=== PATIENT | female | born 1935 | race Caucasian/White ===

== ENCOUNTER → 2019-05-06 | Outpatient (CLI) | payer MEDICARE ==
[~2019-05-06] VITALS: Ht 157.5 cm; Wt 67.1 kg
[2019-05-06] MEDS: REGADENOSON 0.4 MG/5 ML PF SYG IVP SCH (11:59)
== END | disposition home or self-care (01) ==
LOC: SHCH 08:54
PROVIDERS: ATTEND Internal Medicine Cardiovascular Disease
DX: R06.09 Other forms of dyspnea (principal)
CPT/HCPCS: 78452; 93017; 96374; A9500 ×2; J2785